=== PATIENT | female | born 1995 | race Caucasian/White ===

== ENCOUNTER 2019-10-09 21:49 | Emergency (ER) | payer MEDICAID, OTHER ==
[~2019-10-09] VITALS: Ht 165.1 cm; Wt 54.4 kg
[2019-10-09 21:49] VITALS: BP 125/71
== END 2019-10-10 03:30 | disposition left against medical advice (07) ==
LOC: ER 21:49 → EDBD 21:49 → ER 10-10 03:30
DX: S00.83XA Contusion of other part of head, initial encounter (principal); S40.022A Contusion of left upper arm, initial encounter; S40.021A Contusion of right upper arm, initial encounter; Z53.21 Procedure and treatment not carried out due to patient leaving prior to being seen by health care provider; Y04.8XXA Assault by other bodily force, initial encounter; Y93.89 Activity, other specified; Y92.89 Other specified places as the place of occurrence of the external cause; Y99.8 Other external cause status
CPT/HCPCS: 70450; 72125; 72131; J7030

== ENCOUNTER 2022-09-30 09:43 | Emergency (ER) | payer MEDICAID ==
[~2022-09-30] VITALS: Ht 149.9 cm; Wt 54.4 kg
[2022-09-30 10:30] LABS: Basophils # (auto) 0.1 10 ^3/uL (0-0.2); Basophils % (auto) 0.9 % (0.0-2.0); Eosinophils # (auto) 0 10 ^3/uL (0-0.8); Eosinophils % (auto) 0.3 % (0.0-7.0); Hematocrit 38.2 % (36.0-46.0); Hemoglobin 12.6 g/dL (12.2-16.2); Lymphocytes # (auto) 1.3 10 ^3/uL (0.4-5.4); Lymphocytes % (auto) 11.3 % (10.0-50.0); Mean Corpuscular Hemoglobin 28.7 pg (28.0-32.0); Mean Corpuscular Hgb Conc. 33.1 g/dL (32.0-36.0); Mean Corpuscular Volume 86.9 fL (80.0-100.0); Monocytes # (auto) 0.8 10 ^3/uL (0-1.3); Monocytes % (auto) 6.8 % (0.0-12.0); Neutrophils # (auto) 9.6 10 ^3/uL (1.6-8.6); Neutrophils % (auto) 80.7 % (37.0-80.0); Nucleated Red Blood Cells % 0.1 %; Red Blood Cells 4.39 10^6/uL (4.0-5.20); Red Cell Distribution Width 17.4 % (11.8-14.3); White Blood Cell 11.8 10^3/uL (4.4-10.8)
[2022-09-30] MEDS ORDERED: LORazepam 2MG/ML-1ML VIAL IV ONE (10:45)
[2022-09-30 10:55] LABS: Albumin 4.3 g/dL (3.4-5.0); Anion Gap 13 (5-15); Blood Alcohol < 3.0 mg/dL (0-5); Blood Urea Nitrogen 13 mg/dL (7-18); Calcium 9.1 mg/dL (8.5-10.1); Carbon Dioxide 24 mmol/L (21-32); Chloride 99 mmol/L (98-107); Glucose 109 mg/dL (74-106); Potassium 3.1 mmol/L (3.5-5.1); Sodium 136 mmol/L (136-145)
[2022-09-30 10:58] LABS: Alanine Aminotransferase 60 U/L (13-56); Alkaline Phosphatase 126 U/L (45-117); Aspartate Aminotransferase 45 U/L (15-37); BUN/Creatinine Ratio 11.4 (10.0-20.0); Bilirubin, Total 3.5 mg/dL (0.2-1.0); GFR African American 74 mL/min; GFR Non-African American 61 mL/min; Total Protein 8.6 g/dL (6.4-8.2)
[2022-09-30 11:02] LABS: Barbiturate Scree,Urine NEGATIVE (NEGATIVE)
[2022-09-30 11:05] LABS: Acetaminophen < 2.0 ug/mL (10-30); Salicylate < 1.7 mg/dL (2.8-20.0)
[2022-09-30 11:11] LABS: Alcohol, Urine < 3.0 mg/dL (0-10); Amphetamine Screen, Urine POSITIVE (NEGATIVE); Benzodiazephine Screen, Urine NEGATIVE (NEGATIVE); Cannabinoid Screen, Urine POSITIVE (NEGATIVE); Cocaine Screen, Urine POSITIVE (NEGATIVE); Opiate Scree,Urine NEGATIVE (NEGATIVE); Phencyclidine Screen, Urine NEGATIVE (NEGATIVE)
[2022-09-30] MEDS ORDERED: HALOPERIDOL LACTATE 5 MG/ML INJ VIAL ONE (11:45)
[2022-09-30] MEDS ORDERED: diphenhdrAMINE HCL 50 MG/1 ML VL ONE (11:46)
[2022-09-30] MEDS ORDERED: HALOPERIDOL LACTATE 5 MG/ML INJ VIAL IM ONE (12:00)
[2022-09-30] MEDS ORDERED: LORazepam 2MG/ML-1ML VIAL IM ONE (12:00)
[2022-09-30] MEDS ORDERED: diphenhdrAMINE HCL 50 MG/1 ML VL IM ONE (12:00)
[2022-10-01] MEDS: OLANZapine 5 MG TAB PO SCH ×2 (10:23→23:19)
[2022-10-02] MEDS ORDERED: POTASSIUM EFFERVESENT TAB 25 MEQ PO ONE (08:30)
[2022-10-02] MEDS ORDERED: LORazepam 0.5 MG TAB PO ONE (09:30)
[2022-10-02] MEDS: OLANZapine 5 MG TAB PO SCH ×2 (12:24→22:10)
[2022-10-03 07:48] VITALS: BP 105/77
== END 2022-10-03 08:27 | disposition short-term general hospital (02) ==
LOC: ER 09:43
DX: R45.851 Suicidal ideations (principal); F31.9 Bipolar disorder, unspecified; J45.909 Unspecified asthma, uncomplicated; F15.10 Other stimulant abuse, uncomplicated; F14.10 Cocaine abuse, uncomplicated; Z87.11 Personal history of peptic ulcer disease
CPT/HCPCS: 36415; 80053; 80307; 80320; 80329; 84132; 84702; 85025; 96372; 99285; J1200; J1630; J2060

== ENCOUNTER 2023-04-29 07:10 | Emergency (ER) | payer MEDICAID ==
[~2023-04-29] VITALS: Ht 149.9 cm; Wt 54.8 kg
[2023-04-29 07:55] VITALS: BP 132/82; PULSE 99; RESP 18; TEMP 97.9; O2SAT 100
[2023-04-29] MEDS ORDERED: IBUP1TAB5 PO (09:18)
== END 2023-04-29 09:27 | disposition home or self-care (01) ==
LOC: ER 07:10
DX: S00.31XA Abrasion of nose, initial encounter (principal); J45.909 Unspecified asthma, uncomplicated; W22.01XA Walked into wall, initial encounter; Y93.89 Activity, other specified; Y92.89 Other specified places as the place of occurrence of the external cause; Y99.8 Other external cause status
CPT/HCPCS: 70160